=== PATIENT | female | born 1995 | race Caucasian/White ===

== ENCOUNTER 2019-01-24 11:04 | Emergency (ER) | payer OTHER ==
[2019-01-24 11:30] VITALS: BP 119/77
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
[2019-01-24] MEDS ORDERED: ORPHENADRINE 60MG/2ML INJ IM ONE (11:45)
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
[2019-01-24] MEDS ORDERED: CYCL10TA29 PO (13:15)
== END 2019-01-24 13:23 | disposition home or self-care (01) ==
LOC: ER 11:50
DX: S16.1XXA Strain of muscle, fascia and tendon at neck level, initial encounter (principal); V89.2XXA Person injured in unspecified motor-vehicle accident, traffic, initial encounter
CPT/HCPCS: 71046; 72050; 81001; 93005; 96372; 99284; J2360; L0172